=== PATIENT | male | born 2000 | race Caucasian/White ===

== ENCOUNTER 2025-01-18 20:39 | Emergency (ER) | payer SELFPAY ==
--- NOTE | ~2025-01-18 | XR_ITS ---
Examination: XR hand RT min 3V Clinical History: lacerations Comparison: None Technique: 3 views right hand Findings/impression: 1. No unexpected radiopaque foreign body. 2. No acute fracture or dislocation. 3. Fifth metacarpal plate and screw fixation intact. 4. Hyperflexion third finger DIP joint; extensor tendon ligament injury suspected. Reviewed, dictated and finalized at location R. [facility]TER
[2025-01-18 20:42] VITALS: BP 146/84; PULSE 80; RESP 14; O2SAT 100
--- NOTE | 2025-01-18 23:01 | ED.GENADULT ---
HPI - General Adult General Chief complaint: Wound/Laceration Stated complaint: Hanging sword, laceration on R hand Time Seen by Provider: 01/18/25 21:54 History of Present Illness HPI narrative: 24-year-old male presenting after sustaining a right hand injury after catching a decorative sword. Patient states he was decorating and it fell then he caught it. Injuries sustained include a 2 cm laceration to base of right thumb, a 1 cm laceration on the underside of the proximal 5th digit, and a 2 cm laceration on the underside of the proximal 4th digit. Good pulses. Thumb maintains good range of motion. Patient unable to make a fist with 5th and 4th digit. Related Data Allergies Allergy/AdvReac Type Severity Reaction Status Date / Time No Known Allergies Allergy Verified 01/18/25 23:02 Exam Narrative: GENERAL: Well-appearing, well-nourished, and in no acute distress. HEAD: Normocephalic, atraumatic. EYES: PERRLA and EOMI. ENT: Nares clear, no rhinorrhea or epistaxis. Mucous membranes moist. Oropharynx without tonsillar hypertrophy exudate or other lesions. Bilateral TMs pearly pritchett non-bulging NECK: Supple. No adenopathy or masses. No carotid bruits or JVD CHEST: Clear to auscultation. No respiratory distress. No wheezes rales or rhonchi HEART: Regular rate and rhythm. No murmur heard. Normal peripheral pulses. ABDOMEN: Soft, nontender, nondistended, normal active bowel sounds. EXTREMITIES: 2 cm laceration to right thumb base. 2 cm laceration proximal underside of right 4th digit. 1 cm laceration proximal underside of right 5th digit. Unable to make a fist with 4th and 5th digit, but good cap refill and pulse ox demonstrated good waveform and was able to machine pecan picker vitals on the injured fingers. Some maintains full range motion and 5/5 strength. Neurovascular intact. Bleeding controlled. SKIN: Warm, dry, no rash. NEURO: No focal deficits. Alert and oriented x3. PSYCH: Normal mood and affect Course Vital Signs Vital signs: Vital Signs Pulse Rate 80 01/18/25 20:42 Respiratory Rate 14 01/18/25 20:42 Blood Pressure 146/84 H 01/18/25 20:42 Pulse Oximetry 100 01/18/25 20:42 Oxygen Delivery Room Air 01/18/25 20:42 Pulse Rate 66 01/19/25 02:30 Respiratory Rate 18 01/19/25 02:30 Blood Pressure 122/88 01/19/25 02:30 Pulse Oximetry 100 01/19/25 02:30 Oxygen Delivery Room Air 01/18/25 20:42 Procedures Laceration Laceration 1: Date: 01/19/25 Time: 01:32 Site: other (base of thumb) Side (If applicable): right Size (cm): 2 Description: linear Depth: simple, single layer Local Anesthetic: lidocaine 1% Amount of anesthesia used (mL): 5 Pre-repair: irrigated ====== Skin Level ====== Skin layer closed with: nylon Size (cm): 5-0 Number of sutures: 4 Technique: simple, interrupted ====== Subcutaneous Layer ====== ====== Muscle Layer ====== ====== Tendon Layer ====== Laceration 2: Date: 01/19/25 Time: 01:33 Site: other (right proximal 4th digit) Side (If applicable): right Size (cm): 2 Description: linear Depth: simple, single layer Local Anesthetic: lidocaine 1% Amount of anesthesia used (mL): 5 Pre-repair: irrigated ====== Skin Level ====== Skin layer closed with: nylon Size (cm): 5-0 Number of sutures: 3 Technique: simple, interrupted ====== Subcutaneous Layer ====== ====== Muscle Layer ====== ====== Tendon Layer ====== Laceration 3: Date: 01/19/25 Time: 01:34 Site: other (right 5th proximal 5th digit) Side (If applicable): right Size (cm): 1 Description: linear Depth: simple, single layer Local Anesthetic: lidocaine 1% Amount of anesthesia used (mL): 5 Pre-repair: irrigated ====== Skin Level ====== Skin layer closed with: nylon Size (cm): 5-0 Number of sutures: 1 Technique: simple, interrupted ====== Subcutaneous Layer ====== ====== Muscle Layer ====== ====== Tendon Layer ====== Medical Decision Making MDM Narrative Medical decision making narrative: 24-year-old male presenting after sustaining a right hand injury after catching a decorative sword. Patient states he was decorating and it fell then he caught it. Injuries sustained include a 2 cm laceration to base of right thumb, a 1 cm laceration on the underside of the proximal 5th digit, and a 2 cm laceration on the underside of the proximal 4th digit. Good pulses. Thumb maintains good range of motion. Patient unable to make a fist with 5th and 4th digit, concern for flexor tendon injuries. 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 Tylenol given for pain. X-ray demonstrates no acute fractures. Tetanus updated. Spoke with Dr. Hodge with Pl[facility] surgery at [place] who recommended closing all lacerations, placing a dorsal blocking splint, sending home with a course of Keflex, and close follow-up in her office on Monday. The wound was irrigated with copious amounts of normal saline. Lidocaine 1% without epinephrine was used for anesthesia. Wound was explored and no foreign body was seen. The wounds were then closed with 5-0 nylon sutures in simple interrupted fashion. A sterile dressing was applied following the procedure. Patient tolerated the procedure well. Dorsal blocking splint was placed by the emergency department electronic test technician under my supervision. The patient was neurovascularly intact both pre-and post-procedure. All questions were answered to the patient's satisfaction. Patient verbalized understanding of the plan. Given reasons to return. Medical Records Medical records reviewed: Yes I reviewed the external patient's medical records. Vital Signs Vital Signs: Vital Signs Pulse Rate 80 01/18/25 20:42 Respiratory Rate 14 01/18/25 20:42 Blood Pressure 146/84 H 01/18/25 20:42 Pulse Oximetry 100 01/18/25 20:42 Oxygen Delivery Room Air 01/18/25 20:42 Pulse Rate 66 01/19/25 02:30 Respiratory Rate 18 01/19/25 02:30 Blood Pressure 122/88 01/19/25 02:30 Pulse Oximetry 100 01/19/25 02:30 Oxygen Delivery Room Air 01/18/25 20:42 Imaging Data Attestation: I personally reviewed and interpreted this imaging study as follows: Radiologist's impression: Rt Hand XR: Findings/impression: 1. No unexpected radiopaque foreign body. 2. No acute fracture or dislocation. 3. Fifth metacarpal plate and screw fixation intact. 4. Hyperflexion third finger DIP joint; extensor tendon ligament injury suspected. Critical Care Time Critical Care Time Critical Care Time: No Discharge Plan Discharge Clinical Impression: Laceration Patient Disposition: Home Condition: Stable Instructions: Laceration (ED) Additional Instructions: Return to the emergency department if you experience fever, redness or swelling of your wound, abnormal drainage from your wound, or any other symptoms that are concerning to you. Take antibiotic as prescribed. Do not soak the wound. Clean with mild soap and water daily. Follow-up with your primary care doctor for suture removal in [address] Hodge's office with [facility] for close follow-up on Monday. Patient Language: Jamaican Prescriptions: New cephalexin 500 mg capsule 500 mg PO Q8H Qty: 23 0RF Follow-up/Referrals: Hannah Hodge MD [Other] PHYSICIAN,VENEER MEASURER [Primary Care Provider, Internal Medicine]
[2025-01-18] MEDS: ACETAMINOPHEN 500 MG TABLET 1000 MG PO (23:02)
[2025-01-18] MEDS: TETANUS,DIPHTHERIA,AC PERTUSSIS ADULT (0.5 ML) BOOSTRIX IM (23:02)
[2025-01-19] MEDS: Please add drug allergy info to patient profile. 1 EACH XX (00:16)
[2025-01-19] MEDS: LIDOCAINE 1% LOCAL INJ 10 ML VIAL 20 ML INFILTRATE (00:16)
[2025-01-19 01:45] VITALS: BP 122/78; PULSE 88; RESP 18; O2SAT 100
[2025-01-19 02:30] VITALS: BP 122/88; PULSE 66; RESP 18; O2SAT 100
== END 2025-01-19 02:31 | disposition home or self-care (01) ==
DX: S61.011A Laceration without foreign body of right thumb without damage to nail, initial encounter (principal); S61.214A Laceration without foreign body of right ring finger without damage to nail, initial encounter; S61.216A Laceration without foreign body of right little finger without damage to nail, initial encounter; W26.1XXA Contact with sword or dagger, initial encounter; Z23 Encounter for immunization
CPT/HCPCS: 12002; 73130; 90471; 90715; 99283; A9270; J2003